=== PATIENT | male | born 1955 | race African-American/Black ===

== ENCOUNTER → 2021-01-24 | Outpatient (CLI) | payer OTHER ==
[~2021-01-24] MED LIST: NAPR220T66 PO
== END | disposition home or self-care (01) ==
LOC: LAB 08:16
PROVIDERS: ATTEND Surgery
DX: Z01.812 Encounter for preprocedural laboratory examination (principal); Z20.822 Contact with and (suspected) exposure to COVID-19
CPT/HCPCS: 87426

== ENCOUNTER 2021-01-25 05:54 | Day surgery (SDC) | payer OTHER ==
[~2021-01-25] VITALS: Ht 182.9 cm; Wt 111.1 kg
[2021-01-25] MEDS ORDERED: LACTATED RINGERS 1,000 ML IV SCH (06:00)
[2021-01-25] MEDS ORDERED: SKIN ADHESIVE 0.7 GM EA TOP ONE (08:05)
[2021-01-25] MEDS ORDERED: BUPIVACAINE HCL 0.5% (5MG/ML) 50ML ONE (08:05)
[2021-01-25] MEDS ORDERED: POLYMYXIN B SULFATE 500000 UNITS/VIAL ONE (08:07)
[2021-01-25] MEDS ORDERED: NAPR220T66 PO (08:17)
[2021-01-25] MEDS ORDERED: ONDANSETRON HCL 4MG/2ML INJ ONE (09:10)
[2021-01-25] MEDS ORDERED: SUCCINYLCHOLINE CHLORIDE 200MG/10ML IV ONE (09:10)
[2021-01-25] MEDS ORDERED: METOCLOPRAMIDE HCL 10MG/2ML VIAL ONE (09:10)
[2021-01-25] MEDS ORDERED: PROPOFOL 200MG/20ML VIAL IV ONE (09:10)
[2021-01-25] MEDS ORDERED: GLYCOPYRROLATE 0.2 MG/ML 2ML VIAL ONE (09:10)
[2021-01-25] MEDS ORDERED: FENTANYL CITRATE/PF 50MCG/ML 2ML VIAL ONE (09:10)
[2021-01-25] MEDS ORDERED: MIDAZOLAM HCL 2 MG/2 ML VIAL ONE (09:10)
[2021-01-25] MEDS ORDERED: CEFAZOLIN SODIUM 1000MG/VIAL ONE (09:12)
[2021-01-25] MEDS ORDERED: MEPERIDINE HCL/PF 25MG/ML CPJ IV PRN ×2 (10:00)
[2021-01-25] MEDS ORDERED: MORPHINE SULFATE 2 MG/ML CPJ (NOT FOR IM USE) IV PRN (10:00)
[2021-01-25] MEDS ORDERED: SODIUM CHLORIDE 0.9% 1,000 ML IV ONE (10:00)
[2021-01-25] MEDS ORDERED: ONDANSETRON HCL 4MG/2ML INJ IV PRN (10:00)
[2021-01-25] MEDS ORDERED: HYDROMORPHONE HCL/PF 2MG/ML CPJ IV PRN (10:00)
[2021-01-25] MEDS ORDERED: HYDROCODONE/ACETAMINOPHEN 5/325MG TABLET PO PRN (12:00)
[2021-01-25 12:04] VITALS: BP 119/55
== END 2021-01-25 12:35 | disposition home or self-care (01) ==
LOC: OR 05:54
PROVIDERS: ATTEND Surgery
DX: S50.852A Superficial foreign body of left forearm, initial encounter (principal); Z79.899 Other long term (current) drug therapy; Z98.890 Other specified postprocedural states; X58.XXXA Exposure to other specified factors, initial encounter; Y93.89 Activity, other specified; Y92.89 Other specified places as the place of occurrence of the external cause; Y99.8 Other external cause status
CPT/HCPCS: 25071; J0330; J0690; J2250; J2405; J2704; J2765; J3010; J3490